=== PATIENT | male | born 1995 | race Caucasian/White ===

== ENCOUNTER 2023-04-02 06:12 | Emergency (ER) | payer OTHER ==
[~2023-04-02] VITALS: Ht 172.7 cm; Wt 77.3 kg
[2023-04-02 08:02] VITALS: BP 140/80; TEMP 98.9; O2SAT 99
== END 2023-04-02 08:24 | disposition home or self-care (01) ==
LOC: M ED 06:12
DX: N50.811 Right testicular pain (principal); N50.812 Left testicular pain; E78.5 Hyperlipidemia, unspecified